=== PATIENT | female | born 1975 | race Hispanic/Latino ===

== ENCOUNTER 2018-02-05 10:14 | Emergency (ER) | payer BC, OTHER ==
[2018-02-05] MEDS ORDERED: CEFTRIAXONE SODIUM 1 GM ONE (10:51)
[2018-02-05] MEDS ORDERED: LIDOCAINE HCL-MPF 1% 2ML VIAL ONE (10:51)
== END 2018-02-05 11:52 | disposition home or self-care (01) ==
LOC: EDH 10:14
DX: T63.461A Toxic effect of venom of wasps, accidental (unintentional), initial encounter (principal); M79.89 Other specified soft tissue disorders; E07.9 Disorder of thyroid, unspecified; Y92.096 Garden or yard of other non-institutional residence as the place of occurrence of the external cause
CPT/HCPCS: 96372; 99283; J0696; J3490